=== PATIENT | male | born 1980 | race Caucasian/White ===

== ENCOUNTER 2022-06-25 07:52 | Outpatient (REF) | payer MEDICAID, SELFPAY | END 2022-06-25 07:53 | disposition home or self-care (01) | LOC: HO.SH 07:52 | PROVIDERS: Visit Provider Internal Medicine | DX: Z01.118 Encounter for examination of ears and hearing with other abnormal findings (principal); H93.293 Other abnormal auditory perceptions, bilateral; H93.13 Tinnitus, bilateral | CPT/HCPCS: 92557; 92567; 92588 ==